=== PATIENT | female | born 1945 | race Caucasian/White ===

== ENCOUNTER 2016-07-20 08:15 | Day surgery (SDC) | payer OTHER, BC ==
[2016-07-12 12:59] VITALS: BMI 24.9
[2016-07-20] MEDS ORDERED: PROPOFOL 20 ML ONE (08:18)
[2016-07-20 08:56] VITALS: TEMP 97.8
[2016-07-20 10:21] VITALS: PULSE 56
[2016-07-20 10:22] VITALS: BP 129/67
--- NOTE | 2016-07-21 11:40 | PATH ---
Surgical Pathology Report Patient Name: SHIVA BISWAS [facility]. Rec. #: [id number] /Age/Gender: 1945 (Age: 71) / F Account: [id number] Location: [facility], [facility]-ENDOSCOPY Taken: 07/20/2016 Received: 07/20/2016 Reported: 07/21/2016 Physicians: Luigi Hess M.D. Specimen(s) Received BX ANTRUM Clinical History GERD Gastritis, rule out H. Pylori Final Diagnosis STOMACH, ANTRUM, BIOPSY: GASTRIC ANTRAL MUCOSA WITH REACTIVE GASTROPATHY. IMMUNOSTAIN FOR H. PYLORI IS NEGATIVE. Electronically Signed Augustine Cortez M.D. Gross Description Received in formalin, labeled "antrum" are 2 elizabeth, irregular portions of soft tissue measuring 0.3 and 0.5 cm. in greatest dimension. The specimens are submitted in toto in one cassette. /07/20/201607/20/2016
== END 2016-07-20 10:22 | disposition home or self-care (01) ==
LOC: FASU-ENDO 08:15
PROVIDERS: ATTEND Internal Medicine Gastroenterology
PROC: 0DB68ZX Excision of Stomach, Via Natural or Artificial Opening Endoscopic, Diagnostic (ICD-10-PCS; principal; 2016-07-20 09:32)
PROC: 0D748DZ Dilation of Esophagogastric Junction with Intraluminal Device, Via Natural or Artificial Opening Endoscopic (ICD-10-PCS; 2016-07-20 09:32)
DX: K31.9 Disease of stomach and duodenum, unspecified (principal); R13.10 Dysphagia, unspecified; R12 Heartburn
CPT/HCPCS: 88305-TC; 88342-TC

== ENCOUNTER 2023-01-11 07:12 | Day surgery (SDC) | payer OTHER, BC ==
[2023-01-10 13:01] VITALS: BMI 24.4
[2023-01-11] MEDS ORDERED: PROPOFOL 120 ML ONE (07:24)
[2023-01-11] MEDS ORDERED: LIDOCAINE HCL/PF 2% SDV 5ML VIAL ONE (07:24)
[2023-01-11 09:31] VITALS: BP 110/62; PULSE 72; RESP 20; TEMP 98.8
== END 2023-01-11 09:20 | disposition home or self-care (01) ==
LOC: FASU-ENDO 07:12
PROVIDERS: ATTEND Internal Medicine Gastroenterology
PROC: 0DB98ZX Excision of Duodenum, Via Natural or Artificial Opening Endoscopic, Diagnostic (ICD-10-PCS; 2023-01-11)
PROC: 0DB68ZX Excision of Stomach, Via Natural or Artificial Opening Endoscopic, Diagnostic (ICD-10-PCS; 2023-01-11)
PROC: 0DJD8ZZ Inspection of Lower Intestinal Tract, Via Natural or Artificial Opening Endoscopic (ICD-10-PCS; principal; 2023-01-11 08:14)
DX: Z12.11 Encounter for screening for malignant neoplasm of colon (principal); K25.9 Gastric ulcer, unspecified as acute or chronic, without hemorrhage or perforation; K29.50 Unspecified chronic gastritis without bleeding; R13.10 Dysphagia, unspecified; R12 Heartburn
CPT/HCPCS: 43239; G0121; 88305-TC; 88342-TC